=== PATIENT | female | born 2000 | race Caucasian/White ===

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

== ENCOUNTER 2023-07-22 20:10 | Emergency (ER) | payer MEDICAID ==
[~2023-07-22] VITALS: Ht 162.6 cm; Wt 56.7 kg
[~2023-07-22 20:10] MED LIST: ALBU6.7H9 INH
[2023-07-22 20:13] VITALS: O2SAT 98
[2023-07-22] MEDS ORDERED: ACETAMINOPHEN ES 500 MG TABLET ONE (20:52)
[2023-07-22] MEDS ORDERED: DOXYCYCLINE HYCLATE 100 MG TABLET ONE (20:52)
[2023-07-22] MEDS: DOXYCYCLINE HYCLATE 100 MG TABLET PO ONE (20:55)
[2023-07-22] MEDS: ACETAMINOPHEN ES 500 MG TABLET PO ONE (20:55)
[2023-07-22] MEDS ORDERED: DOXY100T2 PO (21:24)
== END 2023-07-22 21:30 | disposition home or self-care (01) ==
LOC: ER 20:18
DX: S81.832A Puncture wound without foreign body, left lower leg, initial encounter (principal); S81.831A Puncture wound without foreign body, right lower leg, initial encounter; Z79.899 Other long term (current) drug therapy; W57.XXXA Bitten or stung by nonvenomous insect and other nonvenomous arthropods, initial encounter; Y93.89 Activity, other specified; Y92.89 Other specified places as the place of occurrence of the external cause; Y99.8 Other external cause status
CPT/HCPCS: A4606; A4663; A9150